=== PATIENT | male | born 1990 | race Caucasian/White ===

== ENCOUNTER 2020-04-18 21:17 | Emergency (ER) | payer OTHER, SELFPAY ==
[2020-04-18 21:18] VITALS: BP 132/87; PULSE 83; RESP 15; TEMP 36.3; O2SAT 99; BMI 36.6
--- NOTE | 2020-04-18 21:49 | CT_ITS ---
STUDY: CT ABDOMEN AND PELVIS WITHOUT CONTRAST REASON FOR EXAM: Male, 29 years old. RLQ PAIN WITH BACK PAIN, HX [place] RADIATION DOSAGE (If Supplied By Facility): CTDIvol = ( 17.09 ) mGy, DLP = ( 1098.07 ) mGycm TECHNIQUE: Transaxial images were obtained from the dome of the diaphragm to the symphysis pubis without oral contrast, and without intravenous contrast. Sagittal and coronal images were reconstructed. Individualized dose optimization techniques were used for this CT. COMPARISON: None. FINDINGS: The visualized lung bases are unremarkable. The visualized portions of the heart are within normal limits. Normal liver. Normal gallbladder and extrahepatic biliary system. Normal spleen. Normal pancreas. Normal bilateral adrenal glands. 3 mm stone in the right kidney. Right hydronephrosis with proximal right hydroureter. There is a 6 mm obstructive right mid ureteral stone. 2 mm stone in the left kidney. Normal visualized stomach. Normal small intestine. Normal colon. The appendix is visualized and appears normal. Appendicolith is noted. Normal abdominal aorta. Normal inferior vena cava. Normal retroperitoneum. Normal urinary bladder. Normal abdominal wall. Normal osseous structures. CT/Abdomen/Pelvis without Cont IMPRESSION: Bilateral renal calculi. Right hydronephrosis and right perinephric stranding. Obstructive right mid ureteral stone is noted. Electronically Signed: Jose Morillo DO at 22:36 EDT Tel [phone], Service support ,
--- NOTE | 2020-04-18 21:50 | ED.VIS.GEN ---
History of Present Illness Chief Complaint: Abd Pain Narrative: This patient is a 29-year-old male who presents with abdominal pain nausea and vomiting. He began to develop vague abdominal pain about 2 hours ago which has localized to the right lower quadrant. He developed nausea and vomiting. No diarrhea. No urinary symptoms such as dysuria frequency urgency. No fever. No abdominal surgeries. He denies medical history or daily medications. Past Medical History - Allergies and Home Meds Allergies/Adverse Reactions: Allergies No Known Allergies Allergy (Verified 04/18/20 21:23) Primary Care Physician: Care Physician,No Primary [Primary Care Provider] - Past Medical History: None Surgical History: no surgical history Smoking Status: Never smoker Review of Systems All systems negative except as indicated General: Denies: Fever Cardiovascular: Denies: Chest pain Respiratory: Denies: Dyspnea Gastrointestinal: Reports: Abdominal pain, Nausea, Vomiting. Denies: Diarrhea Genitourinary: Denies: Dysuria, Frequency Skin: Denies: Rash Neurological: Denies: Headache Hematologic: Denies: Easy bruising Allergy: Denies: Uticaria Physical Exam Vital Signs/Narrative: Vital Signs Temp Pulse Resp BP Pulse Ox 04/18/20 21:18 97.4 F L 83 15 132/87 H 99 Inital Vital Signs reviewed: Yes General: Well nourished Head: Normocephalic Eyes: EOMI ENT: Moist mucous membranes Neck: Supple Cardiovascular: Regular rate, Regular rhythm Respiratory: No distress, CTA bilaterally Abdomen: Soft, Tender - Right lower quadrant abdominal tenderness, Rebound tenderness, Rovsig's sign. Negative for: Guarding Skin: Normal color Neurological: Alert Psychological: Normal affect Diagnostic/Tx/Re-eval Impressions Abdomen/Pelvis CT 04/18/20 21:49 IMPRESSION: Bilateral renal calculi. Right hydronephrosis and right perinephric stranding. Obstructive right mid ureteral stone is noted. Electronically Signed: Jose Morillo DO at 22:36 EDT Tel [phone], Service support , 04/18/20 21:49 Abdomen/Pelvis without Cont [CT] Stat Laboratory Results 04/18/20 04/18/20 04/18/20 21:30 21:30 22:05 WBC 8.3 RBC 5.49 Hgb 15.2 Hct 45.5 MCV 82.9 MCH 27.7 MCHC 33.4 RDW Std Deviation 38.0 RDW Coeff of Jay 12.6 Plt Count 250 MPV 9.5 Immature Gran % (Auto) 0.400 Neut % (Auto) 65.2 Lymph % (Auto) 24.6 [place] % (Auto) 6.1 Eos % (Auto) 3.2 Baso % (Auto) 0.5 Absolute Neuts (auto) 5.4 Absolute Lymphs (auto) 2.03 Nucleated RBC % 0 Sodium 138 Potassium 3.5 Chloride 104 Carbon Dioxide 27.0 Anion Gap 7 BUN 19 H Creatinine 1.28 Estim Creat Clear Calc 85.92 Est GFR (MDRD) Af Amer 86 Est GFR (MDRD) Non-Af 71 BUN/Creatinine Ratio 14.8 Glucose 115 H Calcium 9.3 Urine Color Yellow Urine Clarity Sl. Cloudy Urine pH 6.0 Ur Specific [place] 1.020 Urine Protein 15 H Urine Glucose (UA) Normal Urine Ketones Negative Urine Occult Blood 150 H Urine Nitrite Negative Urine Bilirubin Negative Urine Urobilinogen Normal Ur Leukocyte Esterase Negative Urine RBC 25-50 SEEN Urine WBC 0 SEEN Ur Squamous Epith Cells 0-5 SEEN Urine Bacteria 0 SEEN Urine Mucus 0 SEEN - Medical Decision Making Given patient's clinical presentation I was highly suspicious for acute appendicitis. Patient was treated with IV fluids, morphine, Zofran. Laboratory studies CT of the abdomen pelvis and urinalysis were obtained. Labs are unremarkable. Urinalysis shows blood otherwise normal. CT of the abdomen pelvis shows no evidence of acute appendicitis but does show an obstructive right mid ureteral calculus. Patient had moderate relief of symptoms with morphine but was still complaining of about 5 out of 10 pain. He was given Toradol with near complete resolution of pain. At this time symptoms are well controlled. I do believe he is appropriate for expectant management supportive care with outpatient follow-up with urology. However he was advised to return for any new or worsening symptoms and was instructed on specific signs and symptoms that should prompt return here to the emergency department. He will be discharged with Percocet and Flomax and referred to urology. ED Disposition - Plan for ED Patient: Disposition: Home or Assisted Living Diagnosis: Ureteral calculus Instructions: ED Renal Stone w Colic Prescriptions: Tamsulosin HCl [Flomax] 0.4 mg PO DAILY #7 cap Prescription Printed Oxycodone HCl/Acetaminophen [Percocet 5/325] 1 tab PO Q6H PRN PRN 3 Days #12 tab PRN Reason: Pain Prescription Printed Referrals: Care Physician,No Primary [Primary Care Provider] - Shahid Lugo MD [STAFF PHYSICIAN] -
[2020-04-18] MEDS: 0.9% Normal Saline 1,000 ML 1000 ML IV (21:55)
[2020-04-18] MEDS: Morphine 4 MG/ML Syringe IV (21:55)
[2020-04-18] MEDS: Ondansetron 4 MG/2 ML Vial IV (21:55)
[2020-04-18 22:04] LABS: Absolute Lymphocyte Count 2.03 X10^3/uL (0.83-4.51); Absolute Neutrophil Count 5.4 X10^3/uL (2.0-7.7); Basophil# 0.04 X10^3/uL; Basophil% 0.5 % (0-1); Eosinophil# 0.26 X10^3/uL; Eosinophils% 3.2 % (0-5); Hematocrit 45.5 % (40-54); Hemoglobin 15.2 g/dL (13.0-16.5); Lymphocyte # 2.03 X10^3/ul (4.0); Lymphocyte % 24.6 % (19-41); Mean Corp Hgb Conc 33.4 g/dL (32-36); Mean Corpuscular Hgb 27.7 pg (27.0-32.0); Mean Corpuscular Volume 82.9 fL (80-94); Mean Platelet Vol. 9.5 fl (6.2-12.0); Monocyte% 6.1 % (0-10); NRBC Flagged by Analyzer 0 % (0-5); Neutrophil # 5.39 X10^3/uL (2.7-7.7); Neutrophil % 65.2 % (47-70); Platelet Count 250 K/mm3 (150-450); RBC Distribution Width CV 12.6 % (11.6-14.6); Red Blood Count 5.49 M/mm3 (4.6-6.2); White Blood Count 8.3 K/mm3 (4.4-11.0)
[2020-04-18 22:13] LABS: Anion Gap 7 (5-15); BUN 19 mg/dL (7-18); BUN/Creat Ratio 14.8 RATIO (10-20); Calcium,Total 9.3 mg/dL (8.5-10.1); Chloride 104 mmol/L (98-107); Creatinine, Serum 1.28 mg/dL (0.70-1.30); EST Glomerular Filtration Rate 71 mL/min (>60); Est Glom Filt Rate - Afr Amer 86 mL/min (>60); Estimated Creatinine Clearance 85.92 ml/min; Glucose 115 mg/dL (74-106); Potassium 3.5 mmol/L (3.5-5.1); Sodium Level 138 mmol/L (136-145)
[2020-04-18 22:15] LABS: Bacteria 0 SEEN /hpf (None Seen); Mucous, Urine 0 SEEN /hpf (<or=2+); White Blood Cells 0 SEEN /hpf (0-5)
[2020-04-18 22:19] LABS: Color, Urine Yellow (Yellow); Glucose, Dipstick Normal (Normal); Ketone-Dipstick Negative (Negative); Leukocyte Esterase-Dipstick Negative /ul (Negative); Nitrite-Dipstick Negative (Negative); Occult Blood-Urine 150 /ul (Negative); Protein-Dipstick 15 mg/dl (Negative); Urine Bilirubin Dipstick Negative (Negative); Urine Clarity Sl. Cloudy (Clear); Urine Urobilinogen Normal (Normal)
[2020-04-18 22:28] LABS: Red Blood Cells-Urine 25-50 SEEN /hpf (0-5)
[2020-04-18 22:29] LABS: Squamous Epithelial Cells - UA 0-5 SEEN /hpf (0-5)
[2020-04-18] MEDS: Ketorolac 30 MG/ML Syringe IV (23:00)
[2020-04-19] VITALS: BP 142/108; PULSE 84; RESP 16; O2SAT 98
== END 2020-04-19 00:01 | disposition home or self-care (01) ==
PROVIDERS: Emergency Provider Emergency Medicine
DX: N20.1 Calculus of ureter (principal)
CPT/HCPCS: 74176; 80048; 81001; 85025; 96361; 96374; 96375; 99284; J7030; A4216; J2405